=== PATIENT | female | born 1970 ===

== ENCOUNTER → 2017-05-24 | Outpatient (CLI) | payer BC | LOC: GMA 16:38 | PROVIDERS: ATTEND Physician Assistant | DX: N39.0 Urinary tract infection, site not specified (principal) ==

== ENCOUNTER → 2017-05-28 | Outpatient (CLI) | payer BC | END | disposition home or self-care (01) | LOC: GMA 18:21 | PROVIDERS: ATTEND Nurse Practitioner Family | DX: B37.3 Candidiasis of vulva and vagina (principal) ==

== ENCOUNTER → 2017-06-23 | Outpatient (CLI) | payer BC | END | disposition home or self-care (01) | LOC: GMA 17:21 | PROVIDERS: ATTEND Nurse Practitioner Family | DX: N39.0 Urinary tract infection, site not specified (principal); R30.9 Painful micturition, unspecified ==

== ENCOUNTER → 2017-12-30 | Outpatient (CLI) | payer BC | LOC: GMATM 19:21 | PROVIDERS: ATTEND Nurse Practitioner Family | DX: R35.0 Frequency of micturition (principal) ==

== ENCOUNTER → 2018-01-25 | Outpatient (CLI) | payer BC | LOC: GMAH 16:42 | PROVIDERS: ATTEND Family Medicine | DX: N30.00 Acute cystitis without hematuria (principal) ==